=== PATIENT | male | born 1965 | race Two or more races ===

== ENCOUNTER 2017-10-07 22:14 | Emergency (ER) | payer MEDICAID ==
[~2017-10-07] VITALS: Ht 188 cm; Wt 95.3 kg
[2017-10-07 22:59] VITALS: BP 147/103
[2017-10-08] MEDS ORDERED: FLUORESCEIN SODIUM OPHTH 1 EA STRIP ONE (00:08)
[2017-10-08] MEDS ORDERED: TETRACAINE HCL/PF 0.5% UD 2 ML BOTTLE ONE (00:09)
== END 2017-10-08 00:35 | disposition home or self-care (01) ==
LOC: ER 22:19
DX: S05.01XA Injury of conjunctiva and corneal abrasion without foreign body, right eye, initial encounter (principal); L03.213 Periorbital cellulitis; X58.XXXA Exposure to other specified factors, initial encounter; Y93.89 Activity, other specified; Y92.89 Other specified places as the place of occurrence of the external cause; Y99.8 Other external cause status
CPT/HCPCS: 99283; A4606; Z7610

== ENCOUNTER 2017-10-12 12:11 | Emergency (ER) | payer MEDICAID ==
[~2017-10-12] VITALS: Ht 188 cm; Wt 95.3 kg
[2017-10-12 12:26] VITALS: BP 127/79
[2017-10-12] MEDS ORDERED: FLUORESCEIN SODIUM OPHTH 1 EA STRIP OP ONE (13:00)
[2017-10-12] MEDS ORDERED: TETRACAINE HCL/PF 0.5% UD 2 ML BOTTLE RIGHTEYE ONE (13:00)
[2017-10-12] MEDS ORDERED: FLUORESCEIN SODIUM OPHTH 1 EA STRIP ONE (13:03)
[2017-10-12] MEDS ORDERED: TETRACAINE HCL/PF 0.5% UD 2 ML BOTTLE ONE (13:03)
== END 2017-10-12 14:04 | disposition home or self-care (01) ==
LOC: ER 12:16
DX: B99.9 Unspecified infectious disease (principal); H10.89 Other conjunctivitis
CPT/HCPCS: 99283; A4606; Z7610

== ENCOUNTER 2018-11-01 15:08 | Inpatient (IN) | payer MEDICAID ==
[~2018-11-01] VITALS: Ht 188 cm; Wt 81.6 kg
--- NOTE | 2018-11-01 15:13 | NUR ---
PT BIB SELD SENT BY PMD FOR POSSIBLE UTI, PT IS AAOX4, NOT IN RESPIRATORY DISTRESS, HOOKED TO MONITOR, KEPT RESTED AND COMFORTABLE, WILL CONTINUE TO MONITOR.
--- NOTE | 2018-11-01 15:26 | NUR ---
SEEN AND EXAMINED BY .
--- NOTE | 2018-11-01 15:40 | NUR ---
URINE SPECIMEN COLLECTED AND SENT TO LAB.
[2018-11-01] MEDS ORDERED: ACETAMINOPHEN ES 500 MG TABLET ONE (15:50)
--- NOTE | 2018-11-01 15:50 | NUR ---
IV LINE ESTABLISHED, BLOOD DRAWNED AND SENT TO LAB.
[2018-11-01] MEDS ORDERED: IV NS 0.9% 1,000 ML BAG IV ONE (16:00)
[2018-11-01] MEDS ORDERED: ACETAMINOPHEN ES 500 MG TABLET PO ONE (16:00)
[2018-11-01 16:02] LABS: BASOPHILS # (AUTO) 0.1 /CMM (0.0-0.2); BASOPHILS % (AUTO) 0.8 % (0.0-2.0); EOSINOPHILS % (AUTO) 0.7 % (0.0-6.0); HEMATOCRIT 40 % (39-51); HEMOGLOBIN 13.2 g/dL (13.5-17.5); LYMPHOCYTES # (AUTO) 1.2 /CMM (0.8-4.8); LYMPHOCYTES % (AUTO) 6.9 % (20.0-44.0); MEAN CORPUSCULAR HGB CONC 33 g/dl (31.0-36.0); MEAN CORPUSCULAR VOLUME 89 fL (80-96); MONOCYTES # (AUTO) 0.9 /CMM (0.1-1.30); MONOCYTES % (AUTO) 5.1 % (2.0-12.0); NEUTROPHILS # (AUTO) 14.9 /CMM (1.8-8.9); NEUTROPHILS % (AUTO) 86.5 % (43.0-81.0); PLATELET COUNT (AUTO) 480 /CMM (150-450); RED BLOOD CELL COUNT(AUTO) 4.53 MIL/uL (4.5-6.0); WHITE BLOOD COUNT (AUTO) 17.2 K/uL (4.3-11.0)
[2018-11-01] MEDS ORDERED: EMTR1TAB18 PO (16:02)
[2018-11-01] MEDS ORDERED: MIRT45TA79 PO (16:02)
[2018-11-01] MEDS ORDERED: NAPR-1164 PO (16:02)
[2018-11-01] MEDS ORDERED: FLUO20CA36 PO (16:02)
[2018-11-01] MEDS ORDERED: VITA1TAB20 PO (16:02)
[2018-11-01] MEDS ORDERED: GABA600T12 PO (16:02)
[2018-11-01 16:09] LABS: CALCIUM, SERUM 9.1 mg/dL (8.5-10.1); CARBON DIOXIDE 27 mmol/L (21-32); CHLORIDE 93 mmol/L (98-107); CREATININE 2.7 mg/dL (0.6-1.3); GLUCOSE 101 mg/dL (74-106); POTASSIUM 4.4 mmol/L (3.5-5.1); SODIUM SERUM 132 mmol/L (136-145); UREA NITROGEN, BLOOD 25 mg/dL (7-18)
[2018-11-01 16:15] LABS: ALANINE AMINOTRANSFERASE 68 U/L (12-78); ALBUMIN 2.6 g/dL (3.4-5.0); ALKALINE PHOSPHATASE 122 U/L (46-116); ASPARTATE AMINOTRANSFERASE 37 U/L (15-37); BILIRUBIN,DIRECT 0.6 mg/dL (0.0-0.2); TOTAL PROTEIN, SERUM 8.7 g/dL (6.4-8.2)
--- NOTE | 2018-11-01 16:15 | NUR ---
PT IS WHEELED TO CT SCAN VIA [facility].
[2018-11-01 16:21] LABS: APPEARANCE,URINE CLOUDY (CLEAR); COLOR,URINE YELLOW (YELLOW); PROTEIN,URINE 1+ mg/dl (NEGATIVE); UGLUCOSE NEGATIVE (NEGATIVE)
[2018-11-01 16:22] LABS: BILIRUBIN,URINE NEGATIVE (NEGATIVE); BLOOD, URINE 2+ Ery/uL (NEGATIVE)
[2018-11-01 16:23] LABS: KETONES,URINE NEGATIVE (NEGATIVE); LEUKOCYTE ESTERASE ,URINE 3+ (NEGATIVE); NITRITE, URINE NEGATIVE (NEGATIVE)
[2018-11-01 16:24] LABS: RBC,URINE 21-50 /HPF (0-2)
[2018-11-01 16:25] LABS: BACTERIA,URINE 4+ /HPF (None Seen); SQUAMOUS EPITHELIAL CELL,UR Few /HPF (None Seen); WBC,URINE TOO NUMEROUS TO COUN /HPF (0-3)
[2018-11-01] MEDS ORDERED: CEFTRIAXONE 1GM BAG (ER ONLY) 1 GM/50 ML PIGGYBACK IV ONE (17:30)
[2018-11-01] MEDS ORDERED: CEFTRIAXONE 1GM BAG (ER ONLY) 50 ML IV ONE (17:39)
--- NOTE | 2018-11-01 17:40 | NUR ---
MARY JO AMAYA AT BEDSIDE FOR EVAL.
[2018-11-01] MEDS ORDERED: HYDROCODONE/APAP 10/325MG 1 EA TABLET PO PRN (18:00)
[2018-11-01] MEDS ORDERED: MAGNESIUM HYDROXIDE 30 ML UDC PO PRN (18:00)
[2018-11-01] MEDS ORDERED: ONDANSETRON HCL/PF 4 MG/2 ML VIAL IVP PRN (18:00)
[2018-11-01] MEDS ORDERED: HYDROCODONE/APAP 5/325MG 1 EACH TABLET PO PRN (18:00)
[2018-11-01] MEDS ORDERED: MAG HYDROX/AL HYDROX/SIMETH 30 ML UDC PO PRN (18:00)
--- NOTE | 2018-11-01 18:30 | NUR ---
REPORT GIVEN TO JOSE E SEAMAN FOR EDGAR.
--- NOTE | 2018-11-01 19:53 | NUR ---
RN NOTE RECEIVED PATIENT FROM RN JURGEN, PATIENT IS IN BED, ABLE TO AMBULATE, STEADY GAIT, ALERT/ORIENTED X 4, DX SEPSIS, SECONDARY TO URINARY TRACT INFECTION; ACUTE KIDNEY INJURY, WITH VASOMOTOR NEPHROPATHY, ON ROOM AIR, NO DISTRESS NOTED, AFEBRILE, NO PAIN OR DISCOMFORT NOTED, RIGHT AC 18 GAUGE, NO S/S OF INFECTION/INFILTRATION NOTED, WILL CONTINUE TO MONITOR PATIENT
[2018-11-01 20:00] VITALS: BP 129/91
[2018-11-01] MEDS: TEMAZEPAM 15 MG CAPSULE PO PRN (20:00)
[2018-11-01] MEDS: IV NS 0.9% 1,000 ML IV PRN (20:01)
[2018-11-01 20:03] VITALS: BP 129/91
[2018-11-01] MEDS: MIRTAZAPINE 15 MG TABLET PO SCH (21:12)
[2018-11-02] MEDS: ACETAMINOPHEN 325 MG TABLET PO PRN (01:30)
[2018-11-02 04:00] VITALS: BP 118/75
[2018-11-02 07:04] LABS: BASOPHILS % (AUTO) 0.1 % (0.0-2.0); EOSINOPHILS % (AUTO) 0.3 % (0.0-6.0); HEMATOCRIT 34 % (39-51); LYMPHOCYTES % (AUTO) 5.1 % (20.0-44.0); MEAN CORPUSCULAR HGB CONC 33 g/dl (31.0-36.0); MEAN CORPUSCULAR VOLUME 88 fL (80-96); MONOCYTES % (AUTO) 5.1 % (2.0-12.0); NEUTROPHILS # (AUTO) 17.7 /CMM (1.8-8.9); NEUTROPHILS % (AUTO) 89.4 % (43.0-81.0); PLATELET COUNT (AUTO) 377 /CMM (150-450); RED BLOOD CELL COUNT(AUTO) 3.81 MIL/uL (4.5-6.0); WHITE BLOOD COUNT (AUTO) 19.8 K/uL (4.3-11.0)
[2018-11-02 07:26] LABS: CALCIUM, SERUM 8.2 mg/dL (8.5-10.1); CREATININE 2.9 mg/dL (0.6-1.3); PHOSPHORUS 3.8 mg/dL (2.5-4.9); POTASSIUM 4.8 mmol/L (3.5-5.1)
--- NOTE | 2018-11-02 07:30 | NUR ---
MS RN INITIAL NOTES RECEIVED PT IN BED, A/OX4. PT APPEARS TO BE WITHDRAWN AND DEPRESSED. REFUSING TO BE ASSESSED. ON ROOM AIR; O2 SAT 97% NO S/SX OF LABORED BREATHING. HR TACHY; PT STATES HE IS IN PAIN; BUT REFUSES PAIN MEDS. ABLE TO WALK TO BR WITH STEADY GAIT. NS RUNNING VIA RAC AT 125 ML/HR. SAFETY MEASURES MAINTAINED. WILL CONT TO MONITOR.
[2018-11-02 08:00] VITALS: BP 133/93
[2018-11-02] MEDS: THIAMINE HCL 100 MG TABLET PO SCH (08:29)
[2018-11-02] MEDS: FLUOXETINE HCL 20 MG CAPSULE PO SCH (08:29)
[2018-11-02] MEDS ORDERED: [UNRECOGNIZED DRUG - OTHER] PO SCH (09:00)
--- NOTE | 2018-11-02 11:38 | NUR ---
MS RN NOTES SPOKE TO CM RE: [facility]. TO FOLLOW UP. ACCORDING TO PT, NO ONE IS AVAILABLE TO BRING MED TO HOSPITAL.
--- NOTE | 2018-11-02 11:45 | NUR ---
MS RN NOTES PER DR JARA PT NEEDS FRAZIER CATH INSERTED FOR HYDRONEPHROSIS. WILL CARRY OUT ORDERS AND MONITOR.
--- NOTE | 2018-11-02 12:12 | NUR ---
MS RN NOTES INSERTED FRAZIER CATH 16FR. PT TOLERATED WELL. URINE YELLOW CLEAR 700ML OUT ON INSERTION.
--- NOTE | 2018-11-02 13:05 | NUR ---
MS RN NOTES PER MARY JO MANAGER LEGAL, ORDER PHYSICIAN CONSULT FOR PSYCH. FAXED FACESHEET TO [employer] FOR DR REDMAN
[2018-11-02] MEDS: IV NS 0.9% 1,000 ML IV PRN (13:15)
[2018-11-02 16:00] VITALS: BP 110/79
--- NOTE | 2018-11-02 16:48 | NUR ---
MS RN NOTES REPORTED PT'S HR TO BE TACHY 120-111 TO [facility]AR[facility]. ORDERED ATIVAN 1MG Q8HR PRN. WILL CARRY OUT ORDERS.
[2018-11-02] MEDS ORDERED: LORAZEPAM 1 MG TABLET PO PRN (17:00)
[2018-11-02] MEDS ORDERED: CEFTRIAXONE 1 G in IV D5W 50 ML IV SCH (18:00)
--- NOTE | 2018-11-02 18:40 | NUR ---
ms rn end of shift notes pt in bed, blevins cath draining clear yellow urine. ns infusing via patent iv site on r arm. pt remained afebrile throughout shift. tolerated treatments well. will endorse to pm nurse for kelle.
--- NOTE | 2018-11-02 19:20 | NUR ---
MS RN OPENING NOTES RECEIVED PATIENT IN BED, A/OX4. ABLE TO MAKE NEEDS KNOWN. ON ROOM AIR, NO SOB OR RESPIRATORY DISTRESS NOTED. PER REPORT PATIENT ABLE TO AMBULATE TO BATHROOM WITH STEADY GAIT. IV SITE RIGHT AC 18G, FLUSHING AND PATENT, SITE C/D/I. IV FLUID NS RUNNING AT 125 ML/HR, NO INFILTRATION NOTED. FRAZIER CATH OFF THE FLOOR DRAINING YELLOW CLOUDY URINE NOTED. SAFETY MEASURES MAINTAINED; CALL LIGHT WITHIN REACH, BED LOCKED AND IN LOW POSITION. WILL CONT TO MONITOR.
[2018-11-02 20:00] VITALS: BP 110/80
[2018-11-02] MEDS: MIRTAZAPINE 15 MG TABLET PO SCH (22:00)
[2018-11-02] MEDS: TEMAZEPAM 15 MG CAPSULE PO PRN (23:02)
[2018-11-03] VITALS (8 sets, daily range): BP systolic 101–119; BP diastolic 55–81
[2018-11-03] MEDS: IV NS 0.9% 1,000 ML IV PRN ×3 (00:32→16:44)
--- NOTE | 2018-11-03 07:04 | NUR ---
MS RN CLOSING NOTES PATIENT IN BED, AWAKE, A/OX4. ABLE TO MAKE NEEDS KNOWN. NO ACUTE CHANGES THROUGHOUT SHIFT. URINE CX COLLECTED. ON ROOM AIR, NO SOB OR RESPIRATORY DISTRESS NOTED. IV SITE RIGHT AC 18G, FLUSHING AND PATENT, SITE C/D/I. IV FLUID NS RUNNING AT 125 ML/HR, NO INFILTRATION NOTED. FRAZIER CATH OFF THE FLOOR DRAINING YELLOW CLOUDY URINE NOTED. SAFETY MEASURES MAINTAINED; CALL LIGHT WITHIN REACH, BED LOCKED AND IN LOW POSITION. WILL CONT TO MONITOR. WILL ENDORSE TO AM RN FOR EDGAR.
[2018-11-03 07:17] LABS: BASOPHILS % (AUTO) 0.4 % (0.0-2.0); EOSINOPHILS % (AUTO) 1.3 % (0.0-6.0); HEMATOCRIT 22 % (39-51); HEMOGLOBIN 7.2 g/dL (13.5-17.5); LYMPHOCYTES # (AUTO) 1.4 /CMM (0.8-4.8); LYMPHOCYTES % (AUTO) 12.4 % (20.0-44.0); MEAN CORPUSCULAR HGB CONC 33 g/dl (31.0-36.0); MEAN CORPUSCULAR VOLUME 87 fL (80-96); MONOCYTES # (AUTO) 0.6 /CMM (0.1-1.30); MONOCYTES % (AUTO) 5.1 % (2.0-12.0); NEUTROPHILS % (AUTO) 80.8 % (43.0-81.0); PLATELET COUNT (AUTO) 335 /CMM (150-450); RED BLOOD CELL COUNT(AUTO) 2.47 MIL/uL (4.5-6.0); WHITE BLOOD COUNT (AUTO) 11.1 K/uL (4.3-11.0)
[2018-11-03 07:38] LABS: CREATININE 1.9 mg/dL (0.6-1.3); POTASSIUM 4.6 mmol/L (3.5-5.1)
[2018-11-03] MEDS: THIAMINE HCL 100 MG TABLET PO SCH (08:46)
[2018-11-03] MEDS: FLUOXETINE HCL 20 MG CAPSULE PO SCH (09:00)
[2018-11-03] MEDS ORDERED: MEROPENEM 500 MG in IV NS 0.9% 50 ML IV SCH (10:30)
[2018-11-03] MEDS ORDERED: MEROPENEM 1 G in IV NS 0.9% 100 ML IV ONE (11:00)
[2018-11-03 11:32] LABS: HEMOGLOBIN 7.3 g/dL (13.5-17.5)
--- NOTE | 2018-11-03 15:30 | NUR ---
RN NOTE SPOKE WITH DR ARANA, AND NOTIFIED MONICA NEWELL TO SEE PT FOR CONSULTATION AND MENTIONED BLACK TARRY STOOL AND H/H TRENDING DOWN, WILL THE PT LATER, NO NEW ORDERS AT THIS TIME.
[2018-11-03] MEDS ORDERED: PANTOPRAZOLE 40 MG VIAL IV SCH (16:00)
[2018-11-03] MEDS: MEROPENEM 1 G in IV NS 0.9% 100 ML IV SCH (16:36)
[2018-11-03 17:59] LABS: HEMOGLOBIN 6.3 g/dL (13.5-17.5)
[2018-11-03 18:18] LABS: FERRITIN 374 ng/mL (8-388)
--- NOTE | 2018-11-03 19:00 | NUR ---
RN NOTE HEMOGLOBIN DROPPED FURTHER TO 6.3, PT TACHYCARDIC 125, MARY JO PAGED AND GOT ORDER TO TRANSFUSE BLOOD = 1 UNIT PRBCS, RECHECK H/H AT 2200, TRANSFER PT TELEMETRY.
[2018-11-03 19:17] LABS: IRON, SERUM 31 ug/dl (50-175); TOTAL IRON BINDING CAPACITY 98 ug/dl (250-450)
--- NOTE | 2018-11-03 19:30 | NUR ---
EVENT REPRESENTATIVE OPENING NOTES RECEIVED PATIENT IN BED, A/OX4. ABLE TO MAKE NEEDS KNOWN. ON ROOM AIR, NO SOB OR RESPIRATORY DISTRESS NOTED. IV SITE RIGHT AC 18G AND LEFT FA 20G, BOTH FLUSHING AND PATENT, SITES C/D/I. IV FLUID NS RUNNING AT 75 ML/HR, NO INFILTRATION NOTED. FRAZIER CATH OFF THE FLOOR DRAINING YELLOW CLOUDY URINE NOTED. SAFETY MEASURES MAINTAINED; CALL LIGHT WITHIN REACH, BED LOCKED AND IN LOW POSITION. WILL CONT TO MONITOR.
[2018-11-03 21:05] LABS: OCCULT BLOOD STOOL POSITIVE (NEGATIVE)
[2018-11-03] MEDS: MIRTAZAPINE 15 MG TABLET PO SCH (22:00)
[2018-11-04] VITALS (9 sets, daily range): BP systolic 100–139; BP diastolic 60–74
--- NOTE | 2018-11-04 01:00 | NUR ---
CHICKEN DRESSER NOTES PATIENT S/P BLOOD TRANSFUSION 1PRBC. PATIENT STABLE. NO ACUTE CHANGES NOTED. CHANGED H&H LAB DRAW TO 0200 INSTEAD OF 2200 LAST NIGHT. WILL CONT TO MONITOR PT.
[2018-11-04] MEDS: MEROPENEM 1 G in IV NS 0.9% 100 ML IV SCH ×3 (01:27→17:09)
[2018-11-04 02:53] LABS: HEMOGLOBIN 6.8 g/dL (13.5-17.5)
--- NOTE | 2018-11-04 03:42 | NUR ---
PIPE COVERING MOLDER NOTES PATIENT HGB 6.8 S/P 1UNIT PRBC. MADE AWARE. ORDERED ANOTHER UNIT OF PRBC. WILL ATTEND TO ORDERS.
[2018-11-04 05:07] LABS: *BASOS 0 % (Not Estab.); *EOS 1 % (Not Estab.); *EOS, ABSOLUTE 0.2 x10E3/uL (0.0-0.4); *HCT 19.7 % (37.5-51.0); *HGB 6.6 g/dL (13.0-17.7); *IMMATURE GRANULOCYTES 1 % (Not Estab.); *IMMATURE GRANULOCYTES(ABS) 0.1 x10E3/uL (0.0-0.1); *LYMPHOCYTES 17 % (Not Estab.); *LYMPHS, ABSOLUTE 3.1 x10E3/uL (0.7-3.1); *MCH 29.6 pg (26.6-33.0); *MCHC 33.5 g/dL (31.5-35.7); *MCV 88 fL (79-97); *MONOCYTES 4 % (Not Estab.); *MONOS, ABSOLUTE 0.8 x10E3/uL (0.1-0.9); *NEUTROPHILS 77 % (Not Estab.); *NEUTROPHILS, ABSOLUTE 13.6 x10E3/uL (1.4-7.0); *PLT 424 x10E3/uL (150-450); *RBC 2.23 x10E6/uL (4.14-5.80); *RDW 13.9 % (12.3-15.4)
[2018-11-04] MEDS: PANTOPRAZOLE 40 MG VIAL IV SCH ×2 (06:45→17:12)
--- NOTE | 2018-11-04 07:16 | NUR ---
FITTING ROOM CHECKER CLOSING NOTES PATIENT IN BED, AWAKE, A/OX4. PATIENT KEPT NPO SINCE MIDNIGHT PER MD ORDER. PATIENT HAD NO BM LAST NIGHT. NO S/S OF ACTIVE BLEEDING THROUGHOUT SHIFT. ON TELE MONITOR SINUS TACHY WITH HR 100'S. ALL MD ORDERS ATTENDED, ALL NEEDS ANTICIPATED AND MET. ON ROOM AIR, NO SOB OR RESPIRATORY DISTRESS NOTED. IV SITE RIGHT AC 18G AND LEFT FA 20G, BOTH FLUSHING AND PATENT, SITES C/D/I, IV FLUID NS RUNNING AT 75 ML/HR, NO INFILTRATION NOTED. FRAZIER CATH OFF THE FLOOR DRAINING YELLOW CLOUDY URINE NOTED. SAFETY MEASURES MAINTAINED; CALL LIGHT WITHIN REACH, BED LOCKED AND IN LOW POSITION.
[2018-11-04 08:09] LABS: BASOPHILS % (AUTO) 0.5 % (0.0-2.0); EOSINOPHILS % (AUTO) 1.4 % (0.0-6.0); LYMPHOCYTES # (AUTO) 1.4 /CMM (0.8-4.8); LYMPHOCYTES % (AUTO) 13.8 % (20.0-44.0); MEAN CORPUSCULAR HGB CONC 35 g/dl (31.0-36.0); MEAN CORPUSCULAR VOLUME 87 fL (80-96); MONOCYTES # (AUTO) 0.4 /CMM (0.1-1.30); MONOCYTES % (AUTO) 4.3 % (2.0-12.0); NEUTROPHILS # (AUTO) 7.9 /CMM (1.8-8.9); PLATELET COUNT (AUTO) 320 /CMM (150-450); RED BLOOD CELL COUNT(AUTO) 2.32 MIL/uL (4.5-6.0); WHITE BLOOD COUNT (AUTO) 9.9 K/uL (4.3-11.0)
[2018-11-04 08:19] LABS: ALBUMIN 1.8 g/dL (3.4-5.0); BILIRUBIN,TOTAL 0.4 mg/dL (0.2-1.0); CALCIUM, SERUM 8.2 mg/dL (8.5-10.1); CREATININE 1.8 mg/dL (0.6-1.3); MAGNESIUM 1.4 mg/dL (1.8-2.4); PHOSPHORUS 3.6 mg/dL (2.5-4.9); POTASSIUM 4.2 mmol/L (3.5-5.1); TOTAL PROTEIN, SERUM 5.9 g/dL (6.4-8.2)
[2018-11-04 08:26] LABS: HEMATOCRIT 20 % (39-51); HEMOGLOBIN 6.9 g/dL (13.5-17.5)
[2018-11-04] MEDS: THIAMINE HCL 100 MG TABLET PO SCH (09:00)
[2018-11-04] MEDS: FLUOXETINE HCL 20 MG CAPSULE PO SCH (09:00)
[2018-11-04] MEDS: IV NS 0.9% 1,000 ML IV PRN (09:01)
[2018-11-04 09:20] LABS: LYMPHOCYTES % (MANUAL) 12 % (16-48); MONOCYTES % (MANUAL) 8 % (0-11.0); NEUTROPHILS % (MANUAL) 80 (42-76)
--- NOTE | 2018-11-04 10:03 | NUR ---
RUDI met with pt. to inquire what Pharmacy his medications need to be picked up from. Pt. stated it is [facility] located at [address] [place] [address]. ID . RUDI called the pharmacy and spoke to Elvia who informed SW to have the bilingual student tutor slat pickler the medications from her and she will have them ready for the pt. Addendum: 11/04/18 at 1005 by SUNNY GRIJALVA RUDI is awaiting bilingual student tutor contact information from nursing automobile body repair supervisor
--- NOTE | 2018-11-04 10:18 | NUR ---
SW called [email or web address] service and spoke with Darlin regarding pt's medication needing to be picked up from [facility] located at [address] [place] [address]. . Darlin informed SW they will be delivered within 30-45 minutes. SW requested for them to be delivered to Allie director case. Confirmation #[id number].
[2018-11-04 11:07] LABS: *% CD 4 POS. LYMPH 38.1 % (30.8-58.5); *% CD 8 POS. LYMPH 44.9 % (12.0-35.5); *ABSOLUTE CD 4 HELPER 1181 /uL (359-1519); *ABSOLUTE CD 8 SUPPRESSOR 1392 /uL (109-897); *CD4/CD8 RATIO 0.85 (0.92-3.72)
[2018-11-04] MEDS ORDERED: [UNRECOGNIZED DRUG - OTHER] PO SCH (12:00)
[2018-11-04] MEDS: Magnesium 1GM/D5W 100ML PREMIX 100 ML IV SCH ×2 (12:23→13:22)
[2018-11-04] MEDS: SUCRALFATE 1 G/10 ML UDC PO SCH ×2 (17:09→21:32)
[2018-11-04] MEDS ORDERED: SUCRALFATE 1 G/10 ML UDC PO SCH (17:30)
--- NOTE | 2018-11-04 19:30 | NUR ---
MS RN NOTES: RECEIVED PATIENT RESTING COMFORTABLY IN BED. NO COMPLAIN OF PAIN. ALERT AND ORIENTED X4. CALL LIGHT WITHIN REACH. ISOLATION PRECAUTION OBSERVED.
[2018-11-04] MEDS: TAMSULOSIN 0.4 MG CAP.SR.24H PO SCH (21:33)
[2018-11-04] MEDS: MIRTAZAPINE 15 MG TABLET PO SCH (21:33)
[2018-11-05] MEDS: MEROPENEM 1 G in IV NS 0.9% 100 ML IV SCH ×3 (00:30→17:11)
[2018-11-05 03:54] VITALS: BP 101/66
[2018-11-05 04:00] VITALS: BP 101/66
[2018-11-05] MEDS: PANTOPRAZOLE 40 MG VIAL IV SCH ×2 (06:00→17:11)
--- NOTE | 2018-11-05 06:49 | NUR ---
MS RN CLOSING NOTES: PATIENT IS RESTING COMFORTABLY IN BED. AWAKE ALERT AND ORIENTED X4. RESTED THROUGHOUT THE NIGHT. NO COMPLAIN OF PAIN. NO SIGNS OF BLEEDING NOTED. NO BM DURING THE SHIFT. HEMODYNAMICS AND RESPIRATORY STATUS ARE STABLE. CALL LIGHT WITHIN REACH. BED IN LOW AND LOCKED POSITION.
[2018-11-05] MEDS: SUCRALFATE 1 G/10 ML UDC PO SCH ×4 (07:35→21:07)
[2018-11-05 07:53] LABS: BASOPHILS % (AUTO) 0.2 % (0.0-2.0); EOSINOPHILS % (AUTO) 1.7 % (0.0-6.0); HEMATOCRIT 22 % (39-51); HEMOGLOBIN 7.6 g/dL (13.5-17.5); LYMPHOCYTES # (AUTO) 1.4 /CMM (0.8-4.8); MEAN CORPUSCULAR HGB CONC 34 g/dl (31.0-36.0); MEAN CORPUSCULAR VOLUME 87 fL (80-96); MONOCYTES # (AUTO) 0.4 /CMM (0.1-1.30); MONOCYTES % (AUTO) 5.1 % (2.0-12.0); NEUTROPHILS # (AUTO) 6.2 /CMM (1.8-8.9); PLATELET COUNT (AUTO) 349 /CMM (150-450); RED BLOOD CELL COUNT(AUTO) 2.58 MIL/uL (4.5-6.0); WHITE BLOOD COUNT (AUTO) 8.2 K/uL (4.3-11.0)
--- NOTE | 2018-11-05 07:55 | NUR ---
RN OPENING NOTES RECEIVING PATIENT AWAKE AND RESTING COMFORTABLY IN BED. HE IS AOX4, VERBAL AND AMBULATORY. HE DENIES ANY PAIN, DISCOMFORT, OR SOB AT THIS TIME. FRAZIER CATHETER IS INTACT AND PATENT, CLEAR YELLOW URINE. HE HAS A RAC 18 G SL AND LFA 20 G INFUSING NS AT 75 ML/HR. WILL MONITOR PT FOR BLEEDING. SAFETY MEASURES HAVE BEEN IMPLEMENTED, CALL LIGHT IS WITHIN REACH, BED IS IN LOWEST AND LOCKED POSITION, SIDE RAILS UP X2, HOB ELEVATED, WILL CONTINUE TO MONITOR FOR ANY CHANGES.
[2018-11-05 08:00] VITALS: BP 111/78
[2018-11-05 08:03] LABS: ALBUMIN 1.9 g/dL (3.4-5.0); BILIRUBIN,TOTAL 0.3 mg/dL (0.2-1.0); CALCIUM, SERUM 7.9 mg/dL (8.5-10.1); CREATININE 1.7 mg/dL (0.6-1.3); MAGNESIUM 1.7 mg/dL (1.8-2.4); PHOSPHORUS 3.2 mg/dL (2.5-4.9); POTASSIUM 4.1 mmol/L (3.5-5.1)
[2018-11-05] MEDS: ODEFSEY PO SCH (09:44)
[2018-11-05] MEDS: THIAMINE HCL 100 MG TABLET PO SCH (09:44)
[2018-11-05] MEDS: FLUOXETINE HCL 20 MG CAPSULE PO SCH (09:44)
[2018-11-05] MEDS ORDERED: Magnesium 1GM/D5W 100ML PREMIX 100 ML IV SCH (10:00)
[2018-11-05] MEDS: IV NS 0.9% 1,000 ML IV PRN (14:39)
[2018-11-05 16:00] VITALS: BP 137/91
--- NOTE | 2018-11-05 19:12 | NUR ---
RN CLOSING NOTES PATIENT IS RESTING IN BED COMFORTABLY, DENIES ANY PAIN OR DISCOMFORT AT THIS TIME. VITAL SIGNS ARE STABLE, NO ACUTE CHANGES OCCURRED DURING THE SHIFT. PT NEEDS HAVE BEEN MET. TOLERATING RA WELL, NO S/SX OF RESP DISTRESS OR SOB.. SAFETY MEASURES HAVE BEEN IMPLEMENTED, BED IS IN LOWEST AND LOCKED POSITION, CALL LIGHT IS WITHIN REACH, SIDE RAILS UP X2, WILL ENDORSE TO NIGHTSHIFT RN FOR CONTINUITY OF CARE.
--- NOTE | 2018-11-05 19:27 | NUR ---
MS RN RECEIVE PT IN BED A/O X 3 STABLE, RESPIRATION EVEN AND UNLABORED, NO S/S OF DISTRESS. SAFETY MEASURES IN PLACE. WILL CONT TO MTR.
[2018-11-05 20:00] VITALS: BP 107/54
[2018-11-05] MEDS: MIRTAZAPINE 15 MG TABLET PO SCH (21:07)
[2018-11-05] MEDS: TEMAZEPAM 15 MG CAPSULE PO PRN (21:07)
[2018-11-05] MEDS: TAMSULOSIN 0.4 MG CAP.SR.24H PO SCH (21:07)
[2018-11-06] VITALS (10 sets, daily range): BP systolic 105–139; BP diastolic 67–90
[2018-11-06] MEDS: MEROPENEM 1 G in IV NS 0.9% 100 ML IV SCH ×3 (00:01→17:51)
[2018-11-06] MEDS: IV NS 0.9% 1,000 ML IV PRN (04:59)
[2018-11-06] MEDS: PANTOPRAZOLE 40 MG VIAL IV SCH ×2 (05:07→17:51)
--- NOTE | 2018-11-06 06:40 | NUR ---
MS RN ASLEEP AND EASILY AWAKEN, AM CARE RENDERED. NO S/S OF DISTRESS, NO C/O OF PAIN. NURSING CARE RENDERED, KEPT CLEAN AND DRY AND COMFORTABLE. NEEDS ATTENDED AND ANTICIPATED. SAFETY MEASURES AT ALL TIMES. ENDORSE TO THE NEXT SHIFT.
[2018-11-06 07:07] LABS: BASOPHILS % (AUTO) 0.3 % (0.0-2.0); EOSINOPHILS % (AUTO) 1.9 % (0.0-6.0); LYMPHOCYTES # (AUTO) 1.1 /CMM (0.8-4.8); LYMPHOCYTES % (AUTO) 16.3 % (20.0-44.0); MEAN CORPUSCULAR HGB CONC 34 g/dl (31.0-36.0); MEAN CORPUSCULAR VOLUME 87 fL (80-96); MONOCYTES # (AUTO) 0.4 /CMM (0.1-1.30); MONOCYTES % (AUTO) 5.4 % (2.0-12.0); NEUTROPHILS # (AUTO) 5.2 /CMM (1.8-8.9); NEUTROPHILS % (AUTO) 76.1 % (43.0-81.0); PLATELET COUNT (AUTO) 351 /CMM (150-450); RED BLOOD CELL COUNT(AUTO) 2.33 MIL/uL (4.5-6.0); WHITE BLOOD COUNT (AUTO) 6.9 K/uL (4.3-11.0)
[2018-11-06 07:18] LABS: CALCIUM, SERUM 7.8 mg/dL (8.5-10.1); CREATININE 1.5 mg/dL (0.6-1.3); MAGNESIUM 1.8 mg/dL (1.8-2.4)
--- NOTE | 2018-11-06 07:30 | NUR ---
RN NOTES RECEIVED PATIENT IN BED, ASLEEP BUT AWAKEN BY VERBAL STIMULI, ON ROOM AIR, TOLERATING WELL, NOT ON ANY FORM DISTRESS, NO COMPLAINTS OF PAIN OF ANY KIND, PATIENT ABLE TO MAKE NEEDS KNOWN. IV ACCESS ON RAC G [address], DRESSING INTACT, FLUSHES WELL, WITH ONGOING NS AT 75CC/HR. PATIENT ABLE TO MOVE ABOUT IN BED.ENCOURAGE TO VERBALIZE FEELINGS AND CONCERNS/ CALL FOR HELP OR ASSISTANCE. SAFETY MEASURES OBSERVED AND MAINTAINED. CALL LIGHT PLACED WITHIN REACH, WILL CONTINUE TO MONIKER ATTEND TO NEEDS
[2018-11-06 07:32] LABS: HEMATOCRIT 20 % (39-51); HEMOGLOBIN 6.9 g/dL (13.5-17.5)
[2018-11-06 07:58] LABS: LYMPHOCYTES % (MANUAL) 14 % (16-48); NEUTROPHILS % (MANUAL) 80 (42-76)
[2018-11-06 07:59] LABS: MONOCYTES % (MANUAL) 6 % (0-11.0)
[2018-11-06] MEDS: SUCRALFATE 1 G/10 ML UDC PO SCH ×4 (08:26→21:49)
[2018-11-06] MEDS: FLUOXETINE HCL 20 MG CAPSULE PO SCH (08:26)
[2018-11-06] MEDS: ODEFSEY PO SCH (08:26)
[2018-11-06] MEDS: THIAMINE HCL 100 MG TABLET PO SCH (08:26)
--- NOTE | 2018-11-06 11:00 | NUR ---
RN NOTES INFORMED ATTENDING REGARDING HGB AT 6.9, WITH STANDING ORDER TO TRANSFUSE IF HGB IS < THAN 7. OBTAINED ORDER TO TRANSFUSE BLOOD 1 BAG. ORDER NOTED AND CARRIED OUT
--- NOTE | 2018-11-06 15:00 | NUR ---
RN NOTES TRANSFUSION STARTED
--- NOTE | 2018-11-06 17:30 | NUR ---
RN NOTES TRANSFUSION ENDED AT THIS TIME. ABLE TO TOLERATE THE PROCEDURE WELL. PATIENT NOT ON ANY FORM OF DISTRESS.
--- NOTE | 2018-11-06 19:18 | NUR ---
RN NOTES ENDORSED FOR CONTINUITY OF CARE. NOT ON ANY FORM OF DISTRESS. ALL NURSING NEEDS ATTENDED AND MET. SAFETY MEASURES IN PLACE AT ALL TIMES. CALL LIGHT WITHIN REACH
--- NOTE | 2018-11-06 19:30 | NUR ---
MS RN OPENING NOTE RECEIVED PATIENT IS A/O X 4 AND IS VERBAL WITH NO SIGNS OF DISTRESS. PATIENT IS ON ROOM AIR AND NO SOB. SKIN IS INTACT AND ALL EXTREMITIES WNL. PATIENT HAS IV ACCESS ON RIGHT HAND #22 RUNNING OF NS AND NO SIGNS OF INFILTRATION. PATIENT IS AMBULATORY TO USE RESTROOM. ALL VITAL SIGN WNL. WILL CONTINUE TO MONITOR.
[2018-11-06] MEDS: ACETAMINOPHEN 325 MG TABLET PO PRN (19:56)
[2018-11-06] MEDS: TAMSULOSIN 0.4 MG CAP.SR.24H PO SCH (21:50)
[2018-11-06] MEDS: MIRTAZAPINE 15 MG TABLET PO SCH (21:50)
[2018-11-06] MEDS: TEMAZEPAM 15 MG CAPSULE PO PRN (21:50)
[2018-11-07] MEDS: MEROPENEM 1 G in IV NS 0.9% 100 ML IV SCH ×3 (01:13→17:11)
[2018-11-07 04:00] VITALS: BP 106/62
[2018-11-07] MEDS: PANTOPRAZOLE 40 MG VIAL IV SCH ×2 (06:43→17:11)
[2018-11-07 07:02] LABS: BASOPHILS % (AUTO) 0.4 % (0.0-2.0); EOSINOPHILS % (AUTO) 1.6 % (0.0-6.0); HEMATOCRIT 24 % (39-51); HEMOGLOBIN 8.4 g/dL (13.5-17.5); LYMPHOCYTES # (AUTO) 1.4 /CMM (0.8-4.8); LYMPHOCYTES % (AUTO) 18.4 % (20.0-44.0); MEAN CORPUSCULAR HGB CONC 35 g/dl (31.0-36.0); MEAN CORPUSCULAR VOLUME 87 fL (80-96); MONOCYTES # (AUTO) 0.5 /CMM (0.1-1.30); MONOCYTES % (AUTO) 6.3 % (2.0-12.0); NEUTROPHILS # (AUTO) 5.7 /CMM (1.8-8.9); NEUTROPHILS % (AUTO) 73.3 % (43.0-81.0); PLATELET COUNT (AUTO) 364 /CMM (150-450); RED BLOOD CELL COUNT(AUTO) 2.78 MIL/uL (4.5-6.0); WHITE BLOOD COUNT (AUTO) 7.7 K/uL (4.3-11.0)
[2018-11-07 07:17] LABS: ALBUMIN 1.9 g/dL (3.4-5.0); BILIRUBIN,TOTAL 0.3 mg/dL (0.2-1.0); CALCIUM, SERUM 7.8 mg/dL (8.5-10.1); CREATININE 1.6 mg/dL (0.6-1.3); MAGNESIUM 1.7 mg/dL (1.8-2.4); PHOSPHORUS 2.5 mg/dL (2.5-4.9); POTASSIUM 3.9 mmol/L (3.5-5.1)
--- NOTE | 2018-11-07 07:30 | NUR ---
RN CLOSING NOTE PATIENT ASLEEP IN BED WITH NO SIGNS OF DISTRESS. ON ROOM AIR WITH NO SOB. PATIENT HAS IV SL ON RIGHT HAND #[id number]. ALL SAFETY PRECAUTION APPLIED. REPORT FIRE SAFETY MANAGER TO MORNING NURSE.
--- NOTE | 2018-11-07 07:35 | NUR ---
MS RN OPENING NOTE RECEIVED REPORT FROM PM NURSE. PATIENT IS SLEEPING.EASILY AROUSABLE. A/O X 4 . WITH NO S/S OF DISTRESS NOTED. ON ROOM AIR . IV ACCESS ON RIGHT HAND #22 SL. NO SIGNS OF INFILTRATION. PATIENT IS BRP.BED IS LOCKED AND IN LOW POSITION.CALL LIGHT IN REACH.SRX3. CALL LIGHT IN REACH.WILL CONTINUE TO MONITOR.
[2018-11-07] MEDS: SUCRALFATE 1 G/10 ML UDC PO SCH ×4 (07:45→22:51)
[2018-11-07 08:00] VITALS: BP 116/74
[2018-11-07] MEDS: FLUOXETINE HCL 20 MG CAPSULE PO SCH (08:31)
[2018-11-07] MEDS: THIAMINE HCL 100 MG TABLET PO SCH (08:31)
[2018-11-07] MEDS: ODEFSEY PO SCH (08:32)
[2018-11-07] MEDS ORDERED: Magnesium 1GM/D5W 100ML PREMIX 100 ML IV SCH ×2 (09:13→12:00)
[2018-11-07] MEDS ORDERED: Magnesium 1GM/D5W 100ML PREMIX PIGGYBACK IV ONE (11:30)
--- NOTE | 2018-11-07 12:00 | NUR ---
MS RN NOTE SEEN BY HEENA BLOOD.WILL CONTINUE TO MONITOR.
[2018-11-07] MEDS: SOD FERRIC GLUC 125 MG in IV NS 0.9% 100 ML IV SCH (15:02)
[2018-11-07 16:00] VITALS: BP 129/86
--- NOTE | 2018-11-07 19:34 | NUR ---
ms rn closing note endorsed to pm nurse for kelle..
--- NOTE | 2018-11-07 19:35 | NUR ---
MS RN OPENING NOTE RECEIVED REPORT FROM AM NURSE. PATIENT IS IN BED RESTING. A/O X 4 . WITH NO S/S OF DISTRESS NOTED. ON ROOM AIR, TOLERATING WELL, IV ACCESS ON RIGHT HAND #22 SL. NO SIGNS OF INFILTRATION. PATIENT IS BRP. BED IS LOCKED AND IN LOW POSITION. CALL LIGHT IN REACH. SRX3. WILL CONTINUE TO MONITOR.
[2018-11-07] MEDS: TAMSULOSIN 0.4 MG CAP.SR.24H PO SCH (22:51)
[2018-11-07] MEDS: MIRTAZAPINE 15 MG TABLET PO SCH (22:51)
[2018-11-08] VITALS: BP 122/75
[2018-11-08] MEDS: MEROPENEM 1 G in IV NS 0.9% 100 ML IV SCH ×3 (01:06→17:48)
[2018-11-08] MEDS: PANTOPRAZOLE 40 MG VIAL IV SCH ×2 (06:08→17:48)
--- NOTE | 2018-11-08 07:42 | NUR ---
MS RN CLOSING NOTE PATIENT IS IN BED RESTING. A/O X 4 . WITH NO S/S OF DISTRESS NOTED. ON ROOM AIR, TOLERATING WELL, IV ACCESS ON RIGHT HAND #22 SL. NO SIGNS OF INFILTRATION. PATIENT IS BRP. BED IS LOCKED AND IN LOW POSITION. CALL LIGHT IN REACH. SRX3. WILL ENDORSE HIM TO AM RN FOR EDGAR.
[2018-11-08 08:00] VITALS: BP 123/88
[2018-11-08] MEDS: SUCRALFATE 1 G/10 ML UDC PO SCH ×5 (08:51→22:00)
[2018-11-08] MEDS: FLUOXETINE HCL 20 MG CAPSULE PO SCH (08:51)
[2018-11-08] MEDS: ODEFSEY PO SCH (08:51)
[2018-11-08] MEDS: THIAMINE HCL 100 MG TABLET PO SCH (08:52)
[2018-11-08] MEDS: SOD FERRIC GLUC 125 MG in IV NS 0.9% 100 ML IV SCH (12:39)
[2018-11-08 16:00] VITALS: BP 121/85
[2018-11-08 20:00] VITALS: BP_SYST 109; BP_SYST 119; BP_DIAS 71; BP_DIAS 87
[2018-11-08] MEDS: TAMSULOSIN 0.4 MG CAP.SR.24H PO SCH ×2 (21:53→22:00)
[2018-11-08] MEDS: MIRTAZAPINE 15 MG TABLET PO SCH ×2 (21:53→22:00)
--- NOTE | 2018-11-08 21:55 | NUR ---
MS RN NOTE, PATIENT REFUSED HIS 2100 SCHEDULED MEDICATIONS, HE SAID "NOT TONIGHT". MEDICATIONS WILL BE RETURNED
[2018-11-09] MEDS: MEROPENEM 1 G in IV NS 0.9% 100 ML IV SCH ×2 (01:03→08:50)
--- NOTE | 2018-11-09 01:25 | NUR ---
MS RN NOTES REPORT GIVEN TO ISAEL DORANTES FOR EDGAR.
[2018-11-09 04:00] VITALS: BP_SYST 131; BP_SYST 139; BP_DIAS 75; BP_DIAS 87
[2018-11-09] MEDS: PANTOPRAZOLE 40 MG VIAL IV SCH (05:53)
[2018-11-09 07:41] LABS: BASOPHILS % (AUTO) 0.4 % (0.0-2.0); EOSINOPHILS % (AUTO) 1.1 % (0.0-6.0); HEMATOCRIT 26 % (39-51); HEMOGLOBIN 8.9 g/dL (13.5-17.5); LYMPHOCYTES # (AUTO) 2.2 /CMM (0.8-4.8); LYMPHOCYTES % (AUTO) 22.5 % (20.0-44.0); MEAN CORPUSCULAR HGB CONC 35 g/dl (31.0-36.0); MEAN CORPUSCULAR VOLUME 88 fL (80-96); MONOCYTES # (AUTO) 0.6 /CMM (0.1-1.30); MONOCYTES % (AUTO) 5.7 % (2.0-12.0); NEUTROPHILS % (AUTO) 70.3 % (43.0-81.0); PLATELET COUNT (AUTO) 431 /CMM (150-450); RED BLOOD CELL COUNT(AUTO) 2.95 MIL/uL (4.5-6.0); WHITE BLOOD COUNT (AUTO) 9.9 K/uL (4.3-11.0)
[2018-11-09 08:00] VITALS: BP 112/82
[2018-11-09 08:01] LABS: CALCIUM, SERUM 8.2 mg/dL (8.5-10.1); CREATININE 1.4 mg/dL (0.6-1.3); MAGNESIUM 1.8 mg/dL (1.8-2.4); PHOSPHORUS 2.3 mg/dL (2.5-4.9); POTASSIUM 3.8 mmol/L (3.5-5.1)
[2018-11-09] MEDS: THIAMINE HCL 100 MG TABLET PO SCH (08:50)
[2018-11-09] MEDS: ODEFSEY PO SCH (08:50)
[2018-11-09] MEDS: FLUOXETINE HCL 20 MG CAPSULE PO SCH (08:50)
[2018-11-09] MEDS: SUCRALFATE 1 G/10 ML UDC PO SCH (08:50)
[2018-11-09] MEDS ORDERED: FERR325T6 PO (10:13)
[2018-11-09] MEDS ORDERED: PANT40TA2 PO (10:13)
[2018-11-09] MEDS ORDERED: TAMS-12 PO (10:13)
--- NOTE | 2018-11-09 11:05 | NUR ---
RN DC NOTE RECEIVED DC ORDER FOR PATIENT TO GO HOME. PATIENT STABLE. A/OX4, NO RESPIRATORY DISTRESS. AMBULATORY. IV CATH REMOVED INTACT, PRESSURE DRESSING APPLIED, NO BLEEDING. DC INSTRUCTIONS PROVIDED: "f/u with PMD, GI and urology in 1 week, f/u gastric biopsy results with PMD in [address] HARRY, LEAVE FRAZIER CATHETER IN. PROVIDED EDUCATION ON FRAZIER CARE. PATIENT'S HOME MED X1 GIVEN BACK TO PATIENT. PRESCRIPTION GIVEN TO PATIENT. MEDICATION INFO + EMERGENCY SYMPTOMS DISCUSSED. BELONGINGS CHECKLIST SIGNED. NO WOUND PICTURES TO BE TAKEN. PATIENT AMBULATED OUT OF UNIT, TOOK UBER HOME. PER SURVEY ENGINEER AMY, HOME HEALTH TO FOLLOW UP
== END 2018-11-09 11:00 | disposition home or self-care (01) | DRG 720 ==
LOC: ER 15:14 → MEDSG1 18:39 → TELE1 11-03 19:34 → MEDSG1 11-04 11:44
PROVIDERS: ADMIT Nurse Practitioner Acute Care; ATTEND Student in an Organized Health Care Education/Training Program
PROC: 30233N1 Transfusion of Nonautologous Red Blood Cells into Peripheral Vein, Percutaneous Approach (ICD-10-PCS; principal; 2018-11-03)
PROC: 0DB68ZX Excision of Stomach, Via Natural or Artificial Opening Endoscopic, Diagnostic (ICD-10-PCS; 2018-11-04)
DX: A41.9 Sepsis, unspecified organism (principal); N17.0 Acute kidney failure with tubular necrosis; K29.51 Unspecified chronic gastritis with bleeding; F33.2 Major depressive disorder, recurrent severe without psychotic features; E87.1 Hypo-osmolality and hyponatremia; E66.01 Morbid (severe) obesity due to excess calories; E88.09 Other disorders of plasma-protein metabolism, not elsewhere classified; G62.9 Polyneuropathy, unspecified; B96.20 Unspecified Escherichia coli [E. coli] as the cause of diseases classified elsewhere; D64.9 Anemia, unspecified; Z16.12 Extended spectrum beta lactamase (ESBL) resistance; N13.6 Pyonephrosis; E86.1 Hypovolemia
CPT/HCPCS: 36415; 71045-TC; 80048-TC; 80053-TC; 80061-TC; 80076-TC; 80305; 81000-TC; 82272-TC; 82728-TC; 83540-TC; 83605-TC; 83735-TC; 84100-TC; 84484-TC; 85025-TC; 85027-TC; 85730-TC; 86360; 86706; 86803; 86850-TC; 86921-TC; 87040-TC; 87081-TC; 87086-TC; 87186-TC; 87340; 88305-TC; 88313-TC; 88342; A4216; A6403; C9113; G0378; J0696; J2185; J2704; J2916; J3475; J3490; J7030; J7040; J7050; J7060; P9016-BL

== ENCOUNTER 2018-11-30 21:21 | Inpatient (IN) | payer MEDICAID ==
[~2018-11-30] VITALS: Ht 188 cm; Wt 84.5 kg
[~2018-11-30 21:21] MED LIST: EMTR1TAB18 PO; FERR325T6 PO; FLUO20CA36 PO; GABA600T12 PO; MIRT45TA79 PO; NAPR-1164 PO; PANT40TA2 PO; TAMS-12 PO; VITA1TAB20 PO
--- NOTE | 2018-11-30 21:55 | NUR ---
Received patient from home with chief complaint of anterior lower abdominal pain 11/24. Patient also claimed having pain during urination. Placed on bed comfortably. Awaiting for MD.
[2018-11-30] MEDS ORDERED: IV NS 0.9% 500 ML BAG IV ONE (22:30)
[2018-11-30] MEDS ORDERED: MORPHINE SULFATE INJ 4 MG/ML DISP.SYRIN IV ONE (22:30)
[2018-11-30 22:39] LABS: BASOPHILS % (AUTO) 0.5 % (0.0-2.0); EOSINOPHILS % (AUTO) 0.9 % (0.0-6.0); HEMATOCRIT 36 % (39-51); HEMOGLOBIN 11.9 g/dL (13.5-17.5); LYMPHOCYTES # (AUTO) 1.5 /CMM (0.8-4.8); LYMPHOCYTES % (AUTO) 13.8 % (20.0-44.0); MEAN CORPUSCULAR HGB CONC 34 g/dl (31.0-36.0); MEAN CORPUSCULAR VOLUME 93 fL (80-96); MONOCYTES # (AUTO) 0.7 /CMM (0.1-1.30); MONOCYTES % (AUTO) 6.7 % (2.0-12.0); NEUTROPHILS # (AUTO) 8.3 /CMM (1.8-8.9); NEUTROPHILS % (AUTO) 78.1 % (43.0-81.0); PLATELET COUNT (AUTO) 257 /CMM (150-450); RED BLOOD CELL COUNT(AUTO) 3.83 MIL/uL (4.5-6.0); WHITE BLOOD COUNT (AUTO) 10.6 K/uL (4.3-11.0)
[2018-11-30 22:43] LABS: CALCIUM, SERUM 9.3 mg/dL (8.5-10.1); CREATININE 1.6 mg/dL (0.6-1.3); POTASSIUM 4.3 mmol/L (3.5-5.1)
[2018-11-30] MEDS ORDERED: MORPHINE SULFATE INJ 4 MG/ML DISP.SYRIN ONE (22:43)
[2018-11-30 22:48] LABS: APPEARANCE,URINE Cloudy (CLEAR); BILIRUBIN,URINE Negative (NEGATIVE); BLOOD, URINE Moderate Ery/uL (NEGATIVE); COLOR,URINE Yellow (YELLOW); KETONES,URINE Negative (NEGATIVE); LEUKOCYTE ESTERASE ,URINE Large (NEGATIVE); NITRITE, URINE Positive (NEGATIVE); PH,URINE 6.5 (5.0-8.0); PROTEIN,URINE 100 mg/dl (NEGATIVE); UGLUCOSE Negative (NEGATIVE); UROBILINOGEN,URINE 0.2 EU/dL (0.2)
--- NOTE | 2018-11-30 22:48 | NUR ---
Now ordered noted and carried out.
--- NOTE | 2018-11-30 23:40 | NUR ---
ORDERED PRIMAXIN NOT AVAILABLE IN STOCKS. MADE AWARE.
[2018-11-30] MEDS ORDERED: HYDROMORPHONE 1 MG/1 ML DISP.SYRIN ONE (23:42)
--- NOTE | 2018-11-30 23:46 | NUR ---
Patient claimed having a breakthrough pain. MD notified, new order noted and carried out.
[2018-11-30 23:54] LABS: BACTERIA,URINE Few /HPF (None Seen); SQUAMOUS EPITHELIAL CELL,UR Rare /HPF (None Seen); WBC,URINE TOO NUMEROUS TO COUN /HPF (0-3)
[2018-12-01] MEDS ORDERED: HYDROMORPHONE INJ 0.5 MG/0.5 ML SYRINGE IV ONE
[2018-12-01] MEDS ORDERED: MAGNESIUM HYDROXIDE 30 ML UDC PO PRN (03:00)
[2018-12-01] MEDS ORDERED: PHENAZOPYRIDINE HCL 200 MG TABLET PO PRN (03:00)
[2018-12-01] MEDS ORDERED: ACETAMINOPHEN 325 MG TABLET PO PRN (03:00)
[2018-12-01] MEDS ORDERED: ZOLPIDEM TARTRATE 5 MG TABLET PO PRN (03:00)
[2018-12-01] MEDS ORDERED: ONDANSETRON HCL/PF 4 MG/2 ML VIAL IVP PRN (03:00)
[2018-12-01] MEDS ORDERED: Z GUARD REMEDY 2 OZ OINT TP PRN (03:00)
[2018-12-01] MEDS ORDERED: HYDROCODONE/APAP 5/325MG 1 EACH TABLET PO PRN (03:00)
--- NOTE | 2018-12-01 03:38 | NUR ---
PATIENT FOR ADMISSION TO [facility]. REPORT GIVEN TO JOSE E LANDAVERDE.
[2018-12-01 03:50] VITALS: BP 151/108
--- NOTE | 2018-12-01 03:52 | NUR ---
Transported to [place] via wheelchair accompanied by ER staff.
--- NOTE | 2018-12-01 03:55 | NUR ---
MS ADMISSION NOTES RECEIVED PATIENT FROM ER VIA GURNEY ACCOMPANIED BY 1 ER STAFF. ADMITTED TO [id number] DUE TO UTI UNDER THE SERVICE OF SIMRAN ABDUL. TRANSFERRED TO BED COMFORTABLY, PATIENT AMBULATORY WITH STEADY GAIT NOTED. ADMISSION ROUTINE DONE. BELONGINGS INVENTORY COMPLETED BY THE ASSIGNED DOG WARDEN. ADMISSION ORDERS NOTED AND CARRIED OUT. KEPT PATIENT ON BED CLEAN, DRY AND COMFORTABLE. CALL LIGHT WITHIN EASY REACH. WILL CONTINUE TO MONITOR ACCORDINGLY.
[2018-12-01 04:00] VITALS: BP 151/108
[2018-12-01] MEDS: IV NS 0.9% 1,000 ML IV PRN ×2 (04:07→21:21)
[2018-12-01] MEDS: MORPHINE SULFATE INJ 2 MG/ML DISP.SYRIN IV PRN ×2 (04:19→08:30)
--- NOTE | 2018-12-01 04:19 | NUR ---
RN NOTES PATIENT C/O OF SUPRAPUBIC PAIN, 11/24. REQUESTED FOR PAIN MEDICATION. BP- 151/108. MORPHINE 2MG IV GIVEN ORDERED. WILL CONTINUE TO MONITOR ACCORDINGLY
[2018-12-01] MEDS: IMIPENEM/CILASTATIN 1,000 MG in IV NS 0.9% 250 ML IV SCH ×2 (06:00→06:07)
--- NOTE | 2018-12-01 06:11 | NUR ---
RN NOTES PRIMAXIN IV NOT GIVEN- NOT AVAILABLE ON THE UNIT. FAXED AND CALLED NURSING SWATCHER, NONE AVAILABLE
[2018-12-01 06:26] LABS: BASOPHILS % (AUTO) 0.3 % (0.0-2.0); EOSINOPHILS % (AUTO) 1.5 % (0.0-6.0); HEMATOCRIT 36 % (39-51); HEMOGLOBIN 11.6 g/dL (13.5-17.5); LYMPHOCYTES % (AUTO) 10.9 % (20.0-44.0); MEAN CORPUSCULAR HGB CONC 33 g/dl (31.0-36.0); MEAN CORPUSCULAR VOLUME 92 fL (80-96); MONOCYTES # (AUTO) 0.6 /CMM (0.1-1.30); MONOCYTES % (AUTO) 7.2 % (2.0-12.0); NEUTROPHILS # (AUTO) 7.1 /CMM (1.8-8.9); NEUTROPHILS % (AUTO) 80.1 % (43.0-81.0); PLATELET COUNT (AUTO) 237 /CMM (150-450); RED BLOOD CELL COUNT(AUTO) 3.85 MIL/uL (4.5-6.0); WHITE BLOOD COUNT (AUTO) 8.8 K/uL (4.3-11.0)
[2018-12-01 06:40] LABS: CALCIUM, SERUM 9.9 mg/dL (8.5-10.1); CREATININE 1.4 mg/dL (0.6-1.3); PHOSPHORUS 3.5 mg/dL (2.5-4.9); POTASSIUM 3.9 mmol/L (3.5-5.1)
--- NOTE | 2018-12-01 07:04 | NUR ---
MS RN CLOSING NOTES PATIENT RESTING IN BED, APPEARS COMFORTABLE. PERIPHERAL IV INFUSING AT 75ML/HR. NO COMPLAINTS AT THIS TIME. SAFETY MEASURES IN PLACE. CALL LIGHT WITHIN REACH. BED IN LOW, LOCKED POSITION. WILL ENDORSE EDGAR TO AM RN
[2018-12-01 08:00] VITALS: BP 136/96
[2018-12-01] MEDS ORDERED: MEROPENEM 500 MG in IV NS 0.9% 50 ML IV SCH (08:00)
--- NOTE | 2018-12-01 08:00 | NUR ---
MS DORANTES AM NOTES RECEIVED PATIENT AMBULATORY WITH STEADY GAIT NOTED. C/O SEVERE SUPRAPUBIC PAIN.MORPHINE SO4 2 MG IV PRN AND PYRIDIUM GIVEN FOR PAIN MGT.KEPT PATIENT ON BED CLEAN, DRY AND COMFORTABLE. CALL LIGHT WITHIN EASY REACH. WILL CONTINUE TO MONITOR ACCORDINGLY.
[2018-12-01] MEDS ORDERED: BUPR-51 PO (08:31)
--- NOTE | 2018-12-01 09:20 | NUR ---
STAT US BLADDER DONE WITH POST VOID RESIDUAL OF I LITER URINE.DR MODI AWARE.
--- NOTE | 2018-12-01 09:52 | NUR ---
INSERTED FRAZIER CATHETER TAJIK 16 AND DRAINED 1,000 ML CLEAR YELLOW URINE OUTPUT.PT WENT BACK TO SLEEP AND DOESN'T WANT TO BE BOTHERED.WILL MONITOR.CALL LIGHT PLACED WITHIN REACH.
--- NOTE | 2018-12-01 10:51 | NUR ---
DR. LARA INFORMED ABOUT CONSULT, STATED THAT HE WILL VISIT PT TODAY.
--- NOTE | 2018-12-01 11:20 | NUR ---
FRAZIER CATHETER OUTPUT IS DRAINING CLEAR YELLOW URINE OUTPUT WITH 2,100 ML AT THIS TIME.PT SLEEPING COMFORTABLY BUT AROUSABLE AT THIS TIME.
[2018-12-01] MEDS ORDERED: NAPROXEN 500 MG TABLET PO PRN (11:30)
[2018-12-01] MEDS: MEROPENEM 500 MG in IV NS 0.9% 100 ML IV SCH ×2 (13:57→21:35)
[2018-12-01] MEDS: FERROUS SULFATE (325 MG) 325 MG/TAB TABLET PO SCH (13:58)
[2018-12-01] MEDS: GABAPENTIN 300 MG CAPSULE PO SCH ×2 (13:58→16:16)
[2018-12-01] MEDS: VITAMIN B COMP W-C 1 TAB TABLET PO SCH (13:58)
--- NOTE | 2018-12-01 14:56 | NUR ---
SPOKE TO SUNNY,PARTY COORDINATOR AND LISA,PHARMACIST REGARDING PT'S HIV MED:ZACKARY.WILL FOLLOW IT UP TOMORROW.
[2018-12-01 16:13] VITALS: BP 129/72
[2018-12-01] MEDS: PANTOPRAZOLE 40 MG VIAL IV SCH (16:16)
[2018-12-01] MEDS: SUCRALFATE 1 G TABLET PO SCH ×2 (16:57→21:23)
--- NOTE | 2018-12-01 18:22 | NUR ---
PT RESTING IN BED DENYING ANY PAIN OR DISTRESS.WITH FRAZIER CATH DRAINING CLEAR YELLOW URINE OUTPUT.AWAITING FOR DR LARA (UROLOGIST) TO SEE HIM.ATE 100% DINNER.CALL LIGHT PLACED WITHIN REACH.
--- NOTE | 2018-12-01 18:24 | NUR ---
FRAZIER BAG EMPTIED WITH TOTAL 4,100 ML CLEAR YELLOW URINE OUTPUT.
[2018-12-01 20:00] VITALS: BP 122/78
[2018-12-01 20:12] VITALS: BP 122/78
[2018-12-01] MEDS: MIRTAZAPINE SOLUTAB 45 MG/UDTABLET TAB.RAPDIS PO SCH (21:22)
[2018-12-01] MEDS: TAMSULOSIN 0.4 MG CAP.SR.24H PO SCH (21:23)
--- NOTE | 2018-12-01 22:00 | NUR ---
recieved alert and orientated blevins drainage orange yellow clear in color. speech clear moving all ext
--- NOTE | 2018-12-02 | NUR ---
MS MIXING TANK OPERATOR NOTES' PT SLEEPING COMFORTABLY IN BED WITHOUT ANY DISCOMFORT NOTED. IVF STILL INFUSING. WILL CONTINUE MONITORING.
[2018-12-02] MEDS: MEROPENEM 500 MG in IV NS 0.9% 100 ML IV SCH ×3 (05:07→20:39)
[2018-12-02 06:40] LABS: BASOPHILS % (AUTO) 0.2 % (0.0-2.0); EOSINOPHILS % (AUTO) 1.2 % (0.0-6.0); HEMATOCRIT 34 % (39-51); HEMOGLOBIN 11.3 g/dL (13.5-17.5); LYMPHOCYTES # (AUTO) 2.1 /CMM (0.8-4.8); LYMPHOCYTES % (AUTO) 20.7 % (20.0-44.0); MEAN CORPUSCULAR HGB CONC 33 g/dl (31.0-36.0); MEAN CORPUSCULAR VOLUME 92 fL (80-96); MONOCYTES # (AUTO) 0.7 /CMM (0.1-1.30); MONOCYTES % (AUTO) 6.8 % (2.0-12.0); NEUTROPHILS # (AUTO) 7.2 /CMM (1.8-8.9); NEUTROPHILS % (AUTO) 71.1 % (43.0-81.0); PLATELET COUNT (AUTO) 210 /CMM (150-450); RED BLOOD CELL COUNT(AUTO) 3.71 MIL/uL (4.5-6.0); WHITE BLOOD COUNT (AUTO) 10.2 K/uL (4.3-11.0)
[2018-12-02] MEDS ORDERED: PANTOPRAZOLE 40 MG TABLET.DR PO SCH (07:30)
--- NOTE | 2018-12-02 07:30 | NUR ---
MS POSITIVE PRINTER OPERATOR CLOSING NOTES PT RESTING COMFORTABLY IN BED , DENIES ANY PAIN OR ANY DISCOMFORT. ALL DUE MEDS GIVEN AND ALL NEEDS MET. KEPT HIM COMFORTABLE AT ALL TIMES. MERREM STILL INFUSING AT 33 ML/HR. SLEPT WELL AND STABLE SEGUNDO THE NIGHT. KEPT ENDORSE TO AM NURSE FOR CONTINUITY OF CARE. PLACE CALL LIGHT AT REACH.
--- NOTE | 2018-12-02 07:30 | NUR ---
RN OPENING NOTES RECEIVED PATIEM LISA BED RESTING. A/OX4, ABLE TO MAKE NEEDS KNOWN. NOT IN ANY FORM OF DISTRESS, NO SOB. DENIED PAIN OR DISCOMFORT AT THIS TIME. IV ACCESS INTACT AND PATENT. NEEDS ATTENDED. SAFTEY MEASURES IN PLACE. BED IN LOW/LOCKED PSOTION, SIDERAILS UPX2, CALL LIGHT IN REACH. RIVER CONTINUE TO MONIOTR ACCORDINGLY.
[2018-12-02 08:00] VITALS: BP 108/59
[2018-12-02] MEDS ORDERED: [UNRECOGNIZED DRUG - OTHER] PO SCH (09:00)
[2018-12-02] MEDS: PANTOPRAZOLE 40 MG VIAL IV SCH ×2 (09:34→16:51)
[2018-12-02] MEDS: BUPROPION XL 150 MG TAB.ER.24 PO SCH (09:34)
[2018-12-02] MEDS: VITAMIN B COMP W-C 1 TAB TABLET PO SCH (09:35)
[2018-12-02] MEDS: SUCRALFATE 1 G TABLET PO SCH ×4 (09:35→22:09)
[2018-12-02] MEDS: GABAPENTIN 300 MG CAPSULE PO SCH ×3 (09:35→16:52)
[2018-12-02] MEDS: FERROUS SULFATE (325 MG) 325 MG/TAB TABLET PO SCH (09:42)
[2018-12-02] MEDS: FINASTERIDE (5 MG) 5 MG TABLET PO SCH (11:38)
[2018-12-02 16:13] VITALS: BP 100/61
[2018-12-02] MEDS: IV NS 0.9% 1,000 ML IV PRN (16:56)
--- NOTE | 2018-12-02 19:30 | NUR ---
RN CLOSING NOTES PATIENT IN STABLE CONDITION. ALL NEEDS ATTENDED AND PROVIDED. KEPT PPATIENT SAFE AND COMFORTABLE. BED IN LOW/LOCKED POSITION, SIDERAILS UPX2, JHON LIGHT IN REACH. ENDORSED TO NIGHT RN FOR EDGAR.
--- NOTE | 2018-12-02 19:40 | NUR ---
RN NOTES: AWAKE ALERT ORIENTATED X4 VISITO AT THE BEDSIDE PATIENT SMILING AND CONVERSING
[2018-12-02 20:02] VITALS: BP 101/69
[2018-12-02 20:13] VITALS: BP 101/62
[2018-12-02] MEDS: TAMSULOSIN 0.4 MG CAP.SR.24H PO SCH (22:09)
[2018-12-02] MEDS: MIRTAZAPINE SOLUTAB 45 MG/UDTABLET TAB.RAPDIS PO SCH (22:09)
[2018-12-03] MEDS: MEROPENEM 500 MG in IV NS 0.9% 100 ML IV SCH ×2 (04:47→13:42)
--- NOTE | 2018-12-03 05:49 | NUR ---
ENDING NOTES: SLEPT THRU THE NIGHT, CHANGUNG HIS OWN POSITION IN THE BED. CALL LIGHT USED WHEN HE NEEDED ASSIST. BED ALARM ON FOR SAFETY. NO C/O PAIN. IV CONTINUES TO INFUSE 75ML HR ORDERED. THIS SHIFT FRAZIER PUT PUT 1500 ML NO BLOOD NOTED HE HAD A FEMALE VISITOR AT THE BEGINNING OF THE SHIFT.. NO C/O ABOUT THE FRAZIER. READING THE MD'S NOTED POSSIBLY GOING TO BE DISCHARGED TODAY.
[2018-12-03 06:49] LABS: BASOPHILS % (AUTO) 0.2 % (0.0-2.0); EOSINOPHILS % (AUTO) 0.8 % (0.0-6.0); HEMATOCRIT 31 % (39-51); HEMOGLOBIN 10.4 g/dL (13.5-17.5); LYMPHOCYTES # (AUTO) 1.4 /CMM (0.8-4.8); MEAN CORPUSCULAR HGB CONC 34 g/dl (31.0-36.0); MEAN CORPUSCULAR VOLUME 92 fL (80-96); MONOCYTES # (AUTO) 0.4 /CMM (0.1-1.30); MONOCYTES % (AUTO) 6.6 % (2.0-12.0); NEUTROPHILS # (AUTO) 4.3 /CMM (1.8-8.9); NEUTROPHILS % (AUTO) 69.4 % (43.0-81.0); PLATELET COUNT (AUTO) 209 /CMM (150-450); RED BLOOD CELL COUNT(AUTO) 3.37 MIL/uL (4.5-6.0); WHITE BLOOD COUNT (AUTO) 6.1 K/uL (4.3-11.0)
[2018-12-03 06:58] LABS: ALBUMIN 2.2 g/dL (3.4-5.0); BILIRUBIN,TOTAL 0.3 mg/dL (0.2-1.0); CALCIUM, SERUM 7.9 mg/dL (8.5-10.1); CREATININE 1.4 mg/dL (0.6-1.3); MAGNESIUM 1.6 mg/dL (1.8-2.4); PHOSPHORUS 2.6 mg/dL (2.5-4.9); POTASSIUM 3.7 mmol/L (3.5-5.1); TOTAL PROTEIN, SERUM 6.1 g/dL (6.4-8.2)
--- NOTE | 2018-12-03 07:38 | NUR ---
M/S RN OPENING NOTES RECEIVED PATIENT ON BED ASLEEP, EASILY AROUSABLE. RESPIRATION EVEN AND NON LABORED WITH NO ACUTE RESPIRATORY DISTRESS. ABDOMEN SOFT AND NON DISTENDED WITH ACTIVE BOWEL SOUNDS. DENIES PAIN AND DISCOMFORT. SKIN WARM TO TOUCH AND DRY. IV SITE AT LEFT FOREARM, PATENT IN FLUSHING, RUNNING MERREM IV WITH NS AT 75 ML/HR. FC WITH YELLOW OUTPUT, NO HEMATURIA PRESENT. ALL CONCERNS ADDRESSED. CALL LIGHT WITHIN REACH. WILL CONTINUE TO EVAL CARE.
[2018-12-03 08:00] VITALS: BP 114/63
[2018-12-03] MEDS: SUCRALFATE 1 G TABLET PO SCH ×2 (08:12→11:10)
[2018-12-03] MEDS: FINASTERIDE (5 MG) 5 MG TABLET PO SCH (08:12)
[2018-12-03] MEDS: BUPROPION XL 150 MG TAB.ER.24 PO SCH (08:12)
[2018-12-03] MEDS: GABAPENTIN 300 MG CAPSULE PO SCH ×2 (08:12→12:05)
[2018-12-03] MEDS: VITAMIN B COMP W-C 1 TAB TABLET PO SCH (08:12)
[2018-12-03] MEDS: FERROUS SULFATE (325 MG) 325 MG/TAB TABLET PO SCH (08:12)
[2018-12-03] MEDS: PANTOPRAZOLE 40 MG VIAL IV SCH (08:12)
--- NOTE | 2018-12-03 09:08 | NUR ---
M/S RN NOTES PT SEEN BY DR. MODI WITH NEW ORDER FOR DISCHARGE, CONTINUE IV ATB QD X 12 DAYS WITH HOME HEALTH. PICC LINE ORDERED. FF UP WITH UROLOGIST 1-2 WKS. TO COORDINATE WITH SURGICAL TECHNOLOGIST. FC IN PLACE AND TO BE DC AFTER IV ATB/ UROLOGIST RECOMMENDATION. PT MADE AWARE
--- NOTE | 2018-12-03 09:35 | NUR ---
M/S RN NOTES OBTAINED PICC LINE CONSENT
--- NOTE | 2018-12-03 10:03 | NUR ---
M/S RN NOTES CHARLES HUDDLESTON NOTIFIED FOR DISCHARGE ORDER
--- NOTE | 2018-12-03 10:12 | NUR ---
M/S RN NOTES PT OFFERED FLU VACCINE, REFUSED. STATED WILL GET IT ONCE WELL FROM OUTSIDE THE FACILITY.
[2018-12-03] MEDS: Magnesium 1GM/D5W 100ML PREMIX 100 ML IV SCH ×2 (11:10→12:19)
--- NOTE | 2018-12-03 16:30 | NUR ---
M/S STAINED GLASS GLAZIER HELPER NOTES PATIENT DISCHARGED TO HOME VIA UBER ASSISTED BY ANASTASIA DORANTES. PATIENT A/O X 4 AND ABLE TO MAKE NEEDS KNOWN, RESPONSIVE TO ALL STIMULI. RESPIRATION EVEN AND NON LABORED WITH NO ACUTE RESPIRATORY DISTRESS. ABDOMEN SOFT AND NON DISTENDED WITH ACTIVE BOWEL SOUNDS. DENIES PAIN AND DISCOMFORT. SKIN WARM TO TOUCH, INTACT AND DRY. FC OUTPUT 1200 SINCE 0800 WITH YELLOW URINE. CHANGED FC WITH LEG WRAP FC. EXIT CARE GIVEN WITH INSTRUCTIONS PROVIDED, CONTINUE IV PRESCRIBED FOR 2 WEEKS TO BE FF BY NURSES VIA HOME HEALTH, FF UP WITH UROLOGIST IN 10 DAYS. PICC LINE AT RIGHT BRACHIAL WITH 45 CM, 1 CM OUT PATENT IN FLUSHING. LEFT FOREARM IV SITE REMOVED, TOLERATED WELL, NO BLEEDING NOTED. ALL CARE ATTENDED. PT DISCHARGED IN STABLE CONDITION AND THANKFUL WITH SERVICES PROVIDED.
== END 2018-12-03 16:30 | disposition home health service (06) | DRG 463 ==
LOC: ER 21:27 → MED 12-01 03:34
PROVIDERS: ADMIT Internal Medicine; ATTEND Internal Medicine
PROC: 02HV33Z Insertion of Infusion Device into Superior Vena Cava, Percutaneous Approach (ICD-10-PCS; principal; 2018-12-03)
PROC: B548ZZA Ultrasonography of Superior Vena Cava, Guidance (ICD-10-PCS; principal; 2018-12-03)
DX: N39.0 Urinary tract infection, site not specified (principal); N17.0 Acute kidney failure with tubular necrosis; B96.20 Unspecified Escherichia coli [E. coli] as the cause of diseases classified elsewhere; R33.9 Retention of urine, unspecified; D63.8 Anemia in other chronic diseases classified elsewhere; Z79.899 Other long term (current) drug therapy; F32.9 Major depressive disorder, single episode, unspecified; F12.90 Cannabis use, unspecified, uncomplicated; K29.50 Unspecified chronic gastritis without bleeding; N13.9 Obstructive and reflux uropathy, unspecified
CPT/HCPCS: 36415; 76856-TC; 80048-TC; 80053-TC; 81000-TC; 83735-TC; 84100-TC; 85025-TC; 87081-TC; 87086-TC; 87186-TC; A4216; C1751; C9113; G0378; J0743; J1170; J2185; J2270; J2405; J3475; J7030; J7040; J7050

== ENCOUNTER 2018-12-24 14:17 | Emergency (ER) | payer MEDICAID ==
[~2018-12-24] VITALS: Ht 188 cm; Wt 86.6 kg
[~2018-12-24 14:17] MED LIST changes: +BUPR-51 PO; -FLUO20CA36 PO
[2018-12-24 14:31] VITALS: BP 152/99
--- NOTE | 2018-12-24 15:26 | NUR ---
Patient discharged to home in stable condition. Written and verbal after care instructions given. Patient verbalizes understanding of instruction.
--- NOTE | 2018-12-24 15:26 | NUR ---
PICC LINE REMOVED BY ZAY SWANN NP.
== END 2018-12-24 15:32 | disposition home or self-care (01) ==
LOC: ER 14:21
DX: Z45.2 Encounter for adjustment and management of vascular access device (principal); Z79.899 Other long term (current) drug therapy

== ENCOUNTER 2019-12-05 16:37 | Emergency (ER) | payer MEDICAID ==
[~2019-12-05] VITALS: Ht 188 cm; Wt 102.1 kg
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
--- NOTE | 2019-12-05 16:57 | NUR ---
PT TO CT ON CONTRERAS
--- NOTE | 2019-12-05 17:53 | NUR ---
DC Patient discharged to home in stable condition. Written and verbal after care instructions given. Patient verbalizes understanding of instruction.
[2019-12-05 17:54] VITALS: BP 134/97
== END 2019-12-05 17:55 | disposition home or self-care (01) ==
LOC: ER 16:43
DX: S00.83XA Contusion of other part of head, initial encounter (principal); Z79.899 Other long term (current) drug therapy; V49.69XA Unspecified car occupant injured in collision with other motor vehicles in traffic accident, initial encounter; Y93.89 Activity, other specified; Y92.413 State road as the place of occurrence of the external cause; Y99.8 Other external cause status
CPT/HCPCS: 70450-TC; 70486-TC; 72125-TC